=== PATIENT | female | born 1955 | race Caucasian/White ===

== ENCOUNTER 2021-03-14 09:12 | Outpatient (CLI) | payer MEDICARE | END 2021-03-14 09:13 | disposition home or self-care (01) | LOC: TBSIIMAG 09:12 | PROVIDERS: ATTEND Orthopaedic Surgery | DX: M17.11 Unilateral primary osteoarthritis, right knee (principal); S83.241A Other tear of medial meniscus, current injury, right knee, initial encounter; S83.281A Other tear of lateral meniscus, current injury, right knee, initial encounter; M25.461 Effusion, right knee; M23.91 Unspecified internal derangement of right knee ==